=== PATIENT | female | born 1955 | race Two or more races ===

== ENCOUNTER 2018-02-28 12:13 | Outpatient (CLI) | payer OTHER | END 2018-02-28 12:57 | disposition home or self-care (01) | LOC: MAMO-SONO 12:13 | DX: Z12.31 Encounter for screening mammogram for malignant neoplasm of breast (principal); N60.11 Diffuse cystic mastopathy of right breast; N60.12 Diffuse cystic mastopathy of left breast ==

== ENCOUNTER 2018-03-29 07:31 | Outpatient (CLI) | payer OTHER | END 2018-03-29 08:22 | disposition home or self-care (01) | LOC: SONOGRAMA 07:31 | DX: D25.1 Intramural leiomyoma of uterus (principal) ==

== ENCOUNTER 2018-03-29 09:43 | Outpatient (CLI) | payer OTHER | END 2018-03-29 09:52 | disposition home or self-care (01) | LOC: NUCLEAR 09:43 | DX: M81.0 Age-related osteoporosis without current pathological fracture (principal) ==

== ENCOUNTER → 2019-05-20 | Outpatient (CLI) | payer OTHER | END | disposition home or self-care (01) | LOC: MAMO-SONO 07:41 | DX: Z12.31 Encounter for screening mammogram for malignant neoplasm of breast (principal); Z87.898 Personal history of other specified conditions; N60.11 Diffuse cystic mastopathy of right breast; N60.12 Diffuse cystic mastopathy of left breast; D05.11 Intraductal carcinoma in situ of right breast ==

== ENCOUNTER → 2019-05-22 | Outpatient (CLI) | payer OTHER | END | disposition home or self-care (01) | LOC: RAD 09:29 | DX: M54.2 Cervicalgia (principal) ==

== ENCOUNTER 2020-04-07 13:19 | Outpatient (CLI) | payer OTHER | END 2020-04-07 13:34 | disposition home or self-care (01) | LOC: SONOGRAMA 13:19 → MAMO-SONO 15:15 | PROVIDERS: ATTEND Internal Medicine Endocrinology, Diabetes & Metabolism | DX: E03.8 Other specified hypothyroidism (principal); E04.8 Other specified nontoxic goiter ==

== ENCOUNTER 2020-05-06 10:58 | Outpatient (CLI) | payer OTHER | END 2020-05-06 11:17 | disposition home or self-care (01) | LOC: NUCLEAR 10:58 | PROVIDERS: ATTEND Internal Medicine Endocrinology, Diabetes & Metabolism | DX: M81.0 Age-related osteoporosis without current pathological fracture (principal) ==

== ENCOUNTER 2020-06-17 09:09 | Outpatient (CLI) | payer OTHER | END 2020-06-17 09:19 | disposition home or self-care (01) | LOC: MAMO-SONO 09:09 | PROVIDERS: ATTEND Surgery | DX: N64.59 Other signs and symptoms in breast (principal); N60.11 Diffuse cystic mastopathy of right breast; N60.12 Diffuse cystic mastopathy of left breast; D05.11 Intraductal carcinoma in situ of right breast ==

== ENCOUNTER 2021-02-25 09:25 | Outpatient (CLI) | payer OTHER | END 2021-02-25 09:30 | disposition home or self-care (01) | LOC: SONOGRAMA 09:25 | PROVIDERS: ATTEND Obstetrics & Gynecology | DX: R10.2 Pelvic and perineal pain (principal); C54.1 Malignant neoplasm of endometrium ==

== ENCOUNTER 2021-03-15 07:49 | Outpatient (CLI) | payer OTHER | END 2021-03-15 07:58 | disposition home or self-care (01) | LOC: MRI 07:49 | PROVIDERS: ATTEND General Practice | DX: D25.1 Intramural leiomyoma of uterus (principal); R10.2 Pelvic and perineal pain; D25.9 Leiomyoma of uterus, unspecified | CPT/HCPCS: 72197 ==

== ENCOUNTER 2021-04-09 08:11 | Outpatient (CLI) | payer OTHER | END 2021-04-09 08:18 | disposition home or self-care (01) | LOC: RAD 08:11 | DX: I10 Essential (primary) hypertension (principal); Z01.811 Encounter for preprocedural respiratory examination ==

== ENCOUNTER 2021-04-15 11:00 | Inpatient (IN) | payer OTHER ==
[~2021-04-15] VITALS: Ht 152.4 cm; Wt 81.2 kg
[2021-04-15] MEDS ORDERED: SYNTHROID75 MCG PO (15:41)
[2021-04-15] MEDS ORDERED: COZAAR50 MG PO (15:41)
[2021-04-15] MEDS ORDERED: TAMOXIFEN CITRA20 MG PO (15:42)
[2021-04-15] MEDS ORDERED: FOSAMAX70 MG PO (15:42)
[2021-04-21] MEDS ORDERED: LOVENOX40 MG/0.4 SUBCUTANEO (16:17)
== END 2021-04-21 16:52 | disposition home or self-care (01) | DRG 743 ==
LOC: OB/GYN 04-19 07:00 → O/R 04-19 09:15 → OB/GYN 04-19 11:00 → O/R 04-19 13:37 → OB/GYN 04-19 17:48
PROVIDERS: ADMIT Obstetrics & Gynecology; ATTEND Obstetrics & Gynecology
PROC: 0UT50ZZ Resection of Right Fallopian Tube, Open Approach (ICD-10-PCS; 2021-04-19)
PROC: 0UT90ZZ Resection of Uterus, Open Approach (ICD-10-PCS; principal; 2021-04-19 07:00)
DX: D25.0 Submucous leiomyoma of uterus (principal); D25.1 Intramural leiomyoma of uterus; N84.0 Polyp of corpus uteri; N72 Inflammatory disease of cervix uteri; I10 Essential (primary) hypertension; E11.9 Type 2 diabetes mellitus without complications

== ENCOUNTER 2021-05-23 14:20 | Outpatient (CLI) | payer OTHER ==
[~2021-05-23 14:20] MED LIST: COZAAR50 MG PO; FOSAMAX70 MG PO; LOVENOX40 MG/0.4 SUBCUTANEO; SYNTHROID75 MCG PO; TAMOXIFEN CITRA20 MG PO
== END 2021-05-23 14:45 | disposition home or self-care (01) ==
LOC: PPH VACUNA 14:20
PROVIDERS: ATTEND Emergency Medicine Pediatric Emergency Medicine
DX: Z23 Encounter for immunization (principal)

== ENCOUNTER 2021-08-31 09:30 | Outpatient (CLI) | payer OTHER | END 2021-08-31 09:41 | disposition home or self-care (01) | LOC: MAMO-SONO 09:30 | PROVIDERS: ATTEND Surgery | DX: N60.11 Diffuse cystic mastopathy of right breast (principal); N60.12 Diffuse cystic mastopathy of left breast ==

== ENCOUNTER 2021-12-12 07:05 | Outpatient (CLI) | payer OTHER | END 2021-12-12 07:30 | disposition home or self-care (01) | LOC: SONOGRAMA 07:05 | DX: S83.211A Bucket-handle tear of medial meniscus, current injury, right knee, initial encounter (principal); R10.13 Epigastric pain; R12 Heartburn; K30 Functional dyspepsia; K62.5 Hemorrhage of anus and rectum; R11.2 Nausea with vomiting, unspecified; R11.0 Nausea | CPT/HCPCS: 73721 ==

== ENCOUNTER 2021-12-24 08:17 | Outpatient (CLI) | payer OTHER | END 2021-12-24 08:24 | disposition home or self-care (01) | LOC: RAD 08:17 | DX: J40 Bronchitis, not specified as acute or chronic (principal) ==

== ENCOUNTER → 2021-12-26 09:39 | Outpatient (CLI) | payer OTHER | END | disposition home or self-care (01) | LOC: LAB 09:39 | PROVIDERS: ATTEND General Practice | DX: S83.21 Bucket-handle tear of medial meniscus, current injury (principal) ==

== ENCOUNTER 2022-02-28 10:01 | Outpatient (CLI) | payer OTHER | END 2022-02-28 10:16 | disposition home or self-care (01) | LOC: PPH VACUNA 10:01 | DX: Z23 Encounter for immunization (principal) ==

== ENCOUNTER 2022-09-04 07:36 | Outpatient (CLI) | payer OTHER | END 2022-09-04 07:44 | disposition home or self-care (01) | LOC: MAMO-SONO 07:36 | PROVIDERS: ATTEND Surgery | DX: D05.11 Intraductal carcinoma in situ of right breast (principal); N60.11 Diffuse cystic mastopathy of right breast; N60.12 Diffuse cystic mastopathy of left breast ==

== ENCOUNTER 2023-02-15 07:12 | Outpatient (CLI) | payer OTHER | END 2023-02-15 07:20 | disposition home or self-care (01) | LOC: SONOGRAMA 07:12 | PROVIDERS: ATTEND Internal Medicine Gastroenterology | DX: K31.7 Polyp of stomach and duodenum (principal); K76.0 Fatty (change of) liver, not elsewhere classified; R14.0 Abdominal distension (gaseous); Z86.010 Personal history of colon polyps; R19.5 Other fecal abnormalities; K59.09 Other constipation; R12 Heartburn ==

== ENCOUNTER 2023-07-12 10:13 | Emergency (ER) | payer OTHER ==
[~2023-07-12] VITALS: Ht 152.4 cm; Wt 76.7 kg
[2023-07-12] MEDS ORDERED: PAXLOVID 300-11 EAC1 PO (12:08)
[2023-07-12] MEDS ORDERED: PROAIR RESPICL90 MCG IH (12:08)
[2023-07-12] MEDS ORDERED: TUSNEL LIQUID178 ML PO (12:08)
== END 2023-07-12 12:21 | disposition home or self-care (01) ==
LOC: ER 10:13
DX: U07.1 COVID-19 (principal); I10 Essential (primary) hypertension

== ENCOUNTER 2023-09-21 08:18 | Outpatient (CLI) | payer OTHER ==
[~2023-09-21 08:18] MED LIST changes: +PAXLOVID 300-11 EAC1 PO; +PROAIR RESPICL90 MCG IH; +TUSNEL LIQUID178 ML PO
== END 2023-09-21 08:25 | disposition home or self-care (01) ==
LOC: MAMO-SONO 08:18
PROVIDERS: ATTEND Surgery
DX: N60.11 Diffuse cystic mastopathy of right breast (principal); N60.12 Diffuse cystic mastopathy of left breast; Z12.31 Encounter for screening mammogram for malignant neoplasm of breast

== ENCOUNTER 2024-01-16 07:45 | Outpatient (CLI) | payer OTHER | END 2024-01-16 07:50 | disposition home or self-care (01) | LOC: RAD 07:45 | PROVIDERS: ATTEND Orthopaedic Surgery | DX: S52.531A Colles' fracture of right radius, initial encounter for closed fracture (principal) ==

== ENCOUNTER 2024-01-24 07:07 | Outpatient (CLI) | payer OTHER | END 2024-01-24 07:10 | disposition home or self-care (01) | LOC: NUCLEAR 07:07 | PROVIDERS: ATTEND Internal Medicine Gastroenterology | DX: K21.9 Gastro-esophageal reflux disease without esophagitis (principal); K57.30 Diverticulosis of large intestine without perforation or abscess without bleeding; R10.30 Lower abdominal pain, unspecified; K76.0 Fatty (change of) liver, not elsewhere classified; E11.9 Type 2 diabetes mellitus without complications; R11.0 Nausea | CPT/HCPCS: 78264; A9541 ==

== ENCOUNTER 2024-03-04 07:17 | Outpatient (CLI) | payer OTHER | END 2024-03-04 07:18 | disposition home or self-care (01) | LOC: NUCLEAR 07:17 | PROVIDERS: ATTEND Internal Medicine | DX: I20.9 Angina pectoris, unspecified (principal) | CPT/HCPCS: 78452; 93017; A9500; J0153 ==

== ENCOUNTER 2024-11-10 07:43 | Outpatient (CLI) | payer OTHER | END 2024-11-10 07:52 | disposition home or self-care (01) | LOC: SONOGRAMA 07:43 | PROVIDERS: ATTEND Internal Medicine | DX: E03.9 Hypothyroidism, unspecified (principal); D05.11 Intraductal carcinoma in situ of right breast; E88.89 Other specified metabolic disorders; E74.9 Disorder of carbohydrate metabolism, unspecified; E78.9 Disorder of lipoprotein metabolism, unspecified; G62.9 Polyneuropathy, unspecified; I10 Essential (primary) hypertension; K57.30 Diverticulosis of large intestine without perforation or abscess without bleeding; K21.9 Gastro-esophageal reflux disease without esophagitis; K31.84 Gastroparesis; Z13.820 Encounter for screening for osteoporosis ==

== ENCOUNTER 2024-11-11 07:51 | Outpatient (CLI) | payer OTHER | END 2024-11-11 07:57 | disposition home or self-care (01) | LOC: MAMO-SONO 07:51 | PROVIDERS: ATTEND Surgery | DX: N60.11 Diffuse cystic mastopathy of right breast (principal); N60.12 Diffuse cystic mastopathy of left breast; Z12.31 Encounter for screening mammogram for malignant neoplasm of breast ==

== ENCOUNTER 2024-11-17 12:34 | Outpatient (CLI) | payer OTHER | END 2024-11-17 12:36 | disposition home or self-care (01) | LOC: NUCLEAR 12:34 | PROVIDERS: ATTEND Internal Medicine | DX: Z13.820 Encounter for screening for osteoporosis (principal); M81.0 Age-related osteoporosis without current pathological fracture ==

== ENCOUNTER 2025-01-06 08:58 | Outpatient (CLI) | payer OTHER | END 2025-01-06 09:01 | disposition home or self-care (01) | LOC: RAD 08:58 | PROVIDERS: ATTEND Surgery | DX: S29.9XXA Unspecified injury of thorax, initial encounter (principal); S23.41XA Sprain of ribs, initial encounter; X58.XXXA Exposure to other specified factors, initial encounter; Y93.9 Activity, unspecified; Y92.9 Unspecified place or not applicable; Y99.9 Unspecified external cause status ==

== ENCOUNTER 2025-05-13 07:51 | Outpatient (CLI) | payer OTHER | END 2025-05-13 07:52 | disposition home or self-care (01) | LOC: SONOGRAMA 07:51 | PROVIDERS: ATTEND Internal Medicine | DX: K76.0 Fatty (change of) liver, not elsewhere classified (principal); E11.65 Type 2 diabetes mellitus with hyperglycemia ==